=== PATIENT | female | born 1990 | race Two or more races ===

== ENCOUNTER 2021-11-04 02:06 | Emergency (ER) | payer SELFPAY ==
[~2021-11-04] VITALS: Ht 170.2 cm; Wt 65.0 kg
[2021-11-04 02:57] LABS: BASOPHILS % 1.1 % (0.0-2.0); EOSINOPHILS % 1.7 % (0.0-5.0); HEMATOCRIT. 43.4 % (36.0-48.0); HEMOGLOBIN. 14.4 g/dL (12.0-16.0); LYMPHOCYTES % 54.3 % (20.0-50.0); MEAN CORPUSCULAR HEMOGLOBIN 31.6 pg (28.0-32.0); MEAN CORPUSCULAR VOLUME 95.7 fL (81.0-99.0); MEAN PLATELET VOLUME 7.9 fl (7.4-10.4); NEUTROPHILS % 34.9 % (40.0-76.0); PLATELET 223 x1000/uL (130-400); RED BLOOD CELL COUNT 4.54 mill/uL (4.2-5.4); RED CELL DISTRIBUTION WIDTH 14.6 % (11.6-14.6)
[2021-11-04 03:07] LABS: CHLORIDE 108 mEq/L (98-107)
[2021-11-04 03:19] LABS: ETHANOL BLOOD 430 mg/dL
[2021-11-04 10:09] VITALS: BP 118/75
== END 2021-11-04 11:36 | disposition left against medical advice (07) ==
LOC: ER 02:06
DX: F10.229 Alcohol dependence with intoxication, unspecified (principal); J45.909 Unspecified asthma, uncomplicated; Y90.8 Blood alcohol level of 240 mg/100 ml or more
CPT/HCPCS: 36415; 80053; 80320; 82962; 85025; 99285; G0480

== ENCOUNTER 2022-11-07 18:09 | Emergency (ER) | payer SELFPAY ==
[~2022-11-07] VITALS: Ht 165.1 cm; Wt 55.0 kg
[2022-11-07 18:27] VITALS: BP 127/70; PULSE 102; RESP 16; TEMP 98.3; O2SAT 98
== END 2022-11-07 22:04 | disposition home or self-care (01) ==
LOC: ER 18:09
DX: S00.83XA Contusion of other part of head, initial encounter (principal); W18.39XA Other fall on same level, initial encounter; Y93.89 Activity, other specified; Y92.89 Other specified places as the place of occurrence of the external cause; Y99.8 Other external cause status
CPT/HCPCS: 99284